=== PATIENT | female | born 1975 | race Caucasian/White ===

== ENCOUNTER 2017-11-22 18:02 | Emergency (ER) | payer MEDICAID ==
[2017-11-22 19:59] LABS: HCG,QUALITATIVE URINE NEGATIVE (NEGATIVE)
[2017-11-22 20:05] LABS: SQUAMOUS EPITHIAL 25 /hpf (0-5); URINE BACTERIA RARE (<OCC); URINE BILIRUBIN NEGATIVE (NEGATIVE); URINE BLOOD 1+ (NEGATIVE); URINE CLARITY Hazy (Clear); URINE COLOR Yellow (YELLOW); URINE GLUCOSE (UA) NORMAL (Normal); URINE LEUKOCYTE ESTERASE NEG Leu/uL (Negative); URINE PROTEIN NEGATIVE (NEGATIVE); URINE UROBILINOGEN NORMAL mg/dL (0.2-1.0)
--- NOTE | 2017-11-22 20:10 | C.PDOC ---
History Of Present Illness 41 year old female presents to the emergency department with complaints of chronic left lower back pain radiating down her left lateral thigh. Patient states that she has a history of sciatica related to obesity, and a gastric sleeve. Patient is concerned that she might have a UTI. She reports that she has been using heating pads for her back pain which worsens the pain. She also reports frequency and incontinence. Time Seen by Provider: 11/22/17 19:20 Chief Complaint (Nursing): Back Pain History Per: Patient History/Exam Limitations: no limitations Onset/Duration Of Symptoms: Hrs Current Symptoms Are (Timing): Still Present Quality Of Discomfort: "Pain" Previous Symptoms: Back Pain Associated Symptoms: Incontinence Past Medical History Reviewed: Historical Data, Nursing Documentation, Vital Signs Vital Signs: Last Vital Signs Temp 98.2 F 11/22/17 20:25 Pulse 89 11/22/17 20:25 Resp 17 11/22/17 20:25 BP 130/66 11/22/17 20:25 Pulse Ox 98 11/22/17 20:25 - Medical History PMH: Anxiety, Asthma (seasonal), Deep Vein Thrombosis, Gastritis, Chronic Kidney Disease Surgical History: No Surg Hx Family History: States: No Known Family Hx - Social History Hx Tobacco Use: Yes Hx Alcohol Use: No Hx Substance Use: No - Immunization History Hx Tetanus Toxoid Vaccination: No Hx Influenza Vaccination: No Hx Pneumococcal Vaccination: No Review Of Systems Except As Marked, All Systems Reviewed And Found Negative. Genitourinary: Positive for: Frequency, Incontinence Musculoskeletal: Positive for: Back Pain Neurological: Negative for: Weakness, Numbness Physical Exam - Physical Exam Appears: Non-toxic, No Acute Distress, Other (morbidly obese) Skin: Warm, Dry Head: Atraumatic, Normacephalic Eye(s): bilateral: Normal Inspection Neck: Normal, Supple Chest: Symmetrical Cardiovascular: Rhythm Regular, No Murmur Respiratory: Normal Breath Sounds, No Rales, No Rhonchi, No Wheezing Gastrointestinal/Abdominal: Normal Exam, Soft, No Tenderness, No Guarding, No Rebound Back: Paraspinal Tenderness (sacroiliac area), No Other (no pain to percussion at the costovertebral angle) Neurological/Psych: Oriented x3, Normal Speech, Normal Cognition ED Course And Treatment - Laboratory Results Lab Interpretation: Normal (UA neg (dirty catch, neg nitrites/leuk est)) Urine POC: Negative O2 Sat by Pulse Oximetry: 97 (RA) Pulse Ox Interpretation: Normal Medical Decision Making Medical Decision Making: Plan: Motrin 600mg PO Urinalysis persistent back pain/sciatica/muscle strain related to body habitus and heat treatments improved with NSAIDS/ICE therapy in ED NO UTI/LOW susp of pyelo (different locations on body as sciatica) Patient's current and max weight is 246. Disposition Doctor Will See Patient In The: Office Counseled Patient/Family Regarding: Studies Performed, Diagnosis - Disposition Referrals: Shaik Hameed MD [Staff Provider] - Disposition: HOME/ ROUTINE Disposition Time: 20:16 Condition: GOOD Additional Instructions: ice packs to affected area 1/2 hour per hour, nothing hot motrin/Advil 400-600 mg every 6 hours as needed follow-up with your PMD as needed NO UTI, NO today. Instructions: Sciatica, Muscle Strain (DC) Forms: [employer] (Kyr[place]z) - Clinical Impression Clinical Impression: Sciatica, Low back strain - Scribe Statement The provider has reviewed the documentation as recorded by the Scribe (Barrett Levy) Provider Attestation: All medical record entries made by the Scribe were at my direction and personally dictated by me. I have reviewed the chart and agree that the record accurately reflects my personal performance of the history, physical exam, medical decision making, and the department course for this patient. I have also personally directed, reviewed, and agree with the discharge instructions and disposition.
[2017-11-22 20:27] VITALS: BP 130/66; PULSE 89; RESP 17; TEMP 98.2
[2017-11-22 20:34] VITALS: O2SAT 97
== END 2017-11-22 20:25 | disposition home or self-care (01) ==
LOC: C.ER 18:02
DX: M54.32 Sciatica, left side (principal); S39.012A Strain of muscle, fascia and tendon of lower back, initial encounter; X58.XXXA Exposure to other specified factors, initial encounter